=== PATIENT | female | born 1945 | race Caucasian/White ===

== ENCOUNTER 2017-12-06 11:36 | Emergency (ER) | payer MEDICARE, OTHER ==
[~2017-12-06] VITALS: Ht 147.3 cm; Wt 36.5 kg
[~2017-12-06 11:36] MED LIST: ALPR0.25 PO; GABA300 PO; LORT5TAB PO; LORTA5 PO
[2017-12-06 11:44] VITALS: BP 131/76; PULSE 89; RESP 16; TEMP 97.9; O2SAT 97
[2017-12-06] MEDS ORDERED: HYDR12.57 PO (12:01)
[2017-12-06] MEDS ORDERED: SPIR25TA PO (12:01)
[2017-12-06] MEDS ORDERED: HYDR-3583 PO (12:01)
[2017-12-06] MEDS ORDERED: GABA300C5 PO (12:01)
[2017-12-06] MEDS ORDERED: ALPR0.25 PO (12:02)
[2017-12-06] MEDS ORDERED: BUTA1TAB30 PO (12:02)
[2017-12-06] MEDS ORDERED: TETANUS/DIPHTHERIA TOXOID ADULT 0.5 ML VIAL IM ONE (12:15)
--- NOTE | 2017-12-06 12:20 | PD ---
HPI Chief Complaint: Fall Time Seen by Provider: 12:11 Travel History International Travel<30 days: No Contact w/Intl Traveler<30days: No Traveled to known affect area: No History of Present Illness HPI 72-year-old female who reports she lost her balance and fell from a seated position in her wheelchair when she attempted to bend forward pouring cat food into a bowl. She fell onto tile floor hitting her head. There was no loss of consciousness. She is not anticoagulated. She remembers the event. She denies any dizziness, chest pain, shortness of breath prior to the fall. She reports a mild generalized aching headache since the fall. No other injuries. She reports she has chronic pain "all over". She reports no increased pain anywhere. PFSH Past Medical History Arthritis: Yes Autoimmune Disease: Yes (FIBROMYALGIA) Blood Disorders: No Anxiety: Yes Cancer: No Cardiovascular Problems: Yes Chest Pain: Yes Cerebrovascular Accident: No Diabetes: No Diminished Hearing: No Endocrine: No Fibromyalgia: Yes Genitourinary: No Hiatal Hernia: Yes Hypertension: Yes Immune Disorder: Yes (FIBROMYLAGIA) Implanted Vascular Access Dvce: Yes Musculoskeletal: Yes (chronic back pain, osteopenia) Neurologic: Yes Psychiatric: No Reproductive: No Respiratory: No Immunizations Current: Yes Tetanus Vaccination: > 5 Years Influenza Vaccination: No ?: Not Menopausal: Yes Tubal Ligation: Yes Past Surgical History Abdominal Surgery: Yes Appendectomy: Yes Body Medical Devices: BREAST IMPLANTS Cardiac Surgery: No Cholecystectomy: Yes Ear Surgery: No Endocrine Surgery: No Eye Surgery: No Genitourinary Surgery: No Gynecologic Surgery: No Joint Replacement: Yes (RLE NAILING) Oral Surgery: No Thoracic Surgery: No Tonsillectomy: Yes Other Surgery: Yes (BREAST AUGMENTATION AND REMOVAL;) Social History Alcohol Use: No Tobacco Use: Yes (1 PPD) Substance Use: No Allergies-Medications (Allergen,Severity, Reaction): Coded Allergies: iodine (Unverified Allergy, Severe, Seizures, 12/06/17) iopamidol (Unverified Allergy, Severe, 12/06/17) potassium iodide (Unverified Allergy, Severe, Seizures, 12/06/17) povidone-iodine (Unverified Allergy, Severe, Seizures, 12/06/17) pregabalin (Unverified Allergy, Severe, CONFUSION, 12/06/17) propoxyphene (Unverified Allergy, Severe, VOMITING, 12/06/17) sodium iodide (Unverified Allergy, Severe, Seizures, 12/06/17) sodium iodide (Unverified Allergy, Severe, Seizures, 12/06/17) ibandronate sodium (Unverified Adverse Reaction, Severe, FRACTURES, ) Uncoded Allergies: GINSING (Adverse Reaction, Unknown, CONFUSION, 02/17/15) Reported Meds & Prescriptions Reported Meds & Active Scripts Active Reported Butalbital-Acetaminophen 50-325 Mg Tab 1-2 Tab PO DIRECTED PRN Do not exceed 6 tablets per day. Alprazolam 0.25 Mg Tab 0.25 Mg PO Q6H PRN Hydrocodone-Acetaminophen 10-325 mg Tab 1 Tab PO Q6H PRN Gabapentin 300 Mg Cap 300 Mg PO QID Spironolactone 25 Mg Tab 25 Mg PO DAILY Hydrochlorothiazide 12.5 Mg Cap 12.5 Mg PO DAILY Review of Systems Except as stated in HPI: all other systems reviewed are Neg General / Constitutional: No: Fever Eyes: No: Visual changes HENT: No: Headaches Cardiovascular: No: Chest Pain or Discomfort Respiratory: No: Shortness of Breath Gastrointestinal: No: Abdominal Pain Genitourinary: No: Dysuria Physical Exam Narrative GENERAL: Alert and well-appearing 72-year-old female SKIN: Laceration to the right forehead near the hairline. No active bleeding. HEAD: Normocephalic. No hematomas. EYES: Pupils equal, round, reactive to light. EOMs intact. No injection or drainage. ENT: No facial bone tenderness. No nasal bleeding or discharge. Mucous membranes pink and moist. NECK: Trachea midline. No cervical midline tenderness. No step-off deformity. CARDIOVASCULAR: Regular rate and rhythm. No chest wall tenderness. RESPIRATORY: No accessory muscle use. Clear to auscultation. Breath sounds equal bilaterally. GASTROINTESTINAL: Abdomen soft, non-tender, nondistended. MUSCULOSKELETAL: Extremities without clubbing, cyanosis, or edema. No obvious deformities. No bony tenderness. NEUROLOGICAL: Awake and alert. No obvious cranial nerve deficits. Motor grossly within normal limits. Five out of 5 muscle strength in the arms and legs. Normal speech. PSYCHIATRIC: Appropriate mood and affect; insight and judgment normal. Data Data Last Documented VS Vital Signs Date Time Temp Pulse Resp B/P (MAP) Pulse Ox O2 Delivery O2 Flow Rate FiO2 12/06/17 11:44 97.9 89 16 131/76 (94) [address] Brain W/O Iv Contrast(Rout) (12/06/17 ) Ct Cerv Spine W/O Contrast (12/06/17 ) Tetanus/Diphtheria Tox Adult (Tetanus/Di (12/06/17 12:15) MDM Medical Decision Making Medical Screen Exam Complete: Yes Emergency Medical Condition: Yes Differential Diagnosis Facial laceration, head injury, ICH, cervical fracture Narrative Course 72-year-old female here facial laceration and head injury after she lost her balance falling forward from her wheelchair. There was no loss of consciousness. She has normal neurologic exam. CT brain: Negative for intracranial hemorrhage CT cervical spine: No fracture Laceration repair performed. Patient tolerated procedure well. She has been observed in the emergency department for several hours. She is neurologically intact. She is stable and ready for discharge. Procedures Procedure Narrative LACERATION LOCATION: Right forehead LENGTH: 2-1/2 cm NUMBER OF STITCHES/ANA CRISTINA: 5 REPAIR: The area of the laceration was prepped with chlorhexidine and sterilely draped. The laceration was infiltrated with 1% lidocaine with epi. The wound was copiously irrigated and explored without evidence of foreign body, tendon injury or neurovascular injury. The wound was closed using 6-0 Ethilon. This was a single layer repair. A sterile dressing was applied. The patient was advised to keep the dressing clean and dry. Patient tolerated the procedure well. Diagnosis Primary Impression: Facial laceration Qualified Codes: S01.81XA - Laceration without foreign body of other part of head, initial encounter Additional Impression: Head injury Qualified Codes: S09.90XA - Unspecified injury of head, initial encounter Referrals: Primary Care Physician Additional Instructions: Sutures need to be removed in 7 days. Return to the emergency department if he develop severe headache, dizziness, visual changes Disposition: 01 DISCHARGE HOME Condition: Stable Aleksandra Frances December 06, 2017 12:20
--- NOTE | 2017-12-06 13:49 | RADRPT ---
EXAM DATE: 12/06/2017 1:41 PM EDT AGE/SEX: 72 years / Female INDICATIONS: Trauma. Fall. Right forehead laceration. CLINICAL DATA: This is the patient's initial encounter. Patient reports that signs and symptoms have been present for 1 day and indicates a pain score of 7/10. MEDICAL/SURGICAL HISTORY: Cardiovascular disease. Hypertension. Hiatal hernia. Appendectomy. Cho lecystectomy. Tubal ligation. Cervical surgery. RADIATION DOSE: 60.62 CTDI (mGy) COMPARISON: No prior [facility] exams available for comparison. TECHNIQUE: CT of the head without contrast. Using automated exposure control and adjustment of the mA and/or kV according to patient size, radiation dose was kept as low as reasonably achievable to ob tain optimal diagnostic quality images. FINDINGS: Cerebrum: Mild to moderate diffuse cerebral atrophy. The ventricles are normal for degree of atrophy . No evidence of midline shift, mass lesion, hemorrhage or acute infarction. No extraaxial fluid col lections are seen. Posterior Fossa: The cerebellum and brainstem are intact. The 4th ventricle is midline. The cerebe llopontine angle is unremarkable. Extracranial: The visualized portion of the orbits is intact. Skull: The calvaria is intact. No evidence of skull fracture. CONCLUSION: 1. Senescent changes without acute intracranial abnormality. Electronically signed by: Costa West MD 12/06/2017 1:48 PM EDT
--- NOTE | 2017-12-06 13:56 | RADRPT ---
EXAM DATE: 12/06/2017 1:45 PM EDT AGE/SEX: 72 years / Female INDICATIONS: Trauma. Fall. Right forehead laceration. CLINICAL DATA: This is the patient's initial encounter. Patient reports that signs and symptoms have been present for 1 day and indicates a pain score of 7/10. MEDICAL/SURGICAL HISTORY: Cardiovascular disease. Hypertension. Hiatal hernia. Appendectomy. Cholecystectomy. Tubal ligation. Cervical surgery. RADIATION DOSE: 25.25 CTDI (mGy) COMPARISON: POI, XR SPINE CERVICAL FLEX AND EXT ONLY, 03/14/2011. . TECHNIQUE: Contiguous axial images were obtained using helical multirow detector technique. The vol umetric data was post-processed with multiplanar reconstruction in oblique axial, sagittal, and coron al planes. Using automated exposure control and adjustment of the mA and/or kV according to patient s ize, radiation dose was kept as low as reasonably achievable to obtain optimal diagnostic quality melinda ges. FINDINGS: OSSEOUS STRUCTURES: Redemonstration of a C2 fixation screw. There is significant bony resorption of t he dens with no significant bridging callus. This appears to have progressed since remote [facility]. Vertebral body heights are otherwise maintained. Osseous structures are intact without eviden ce for acute bony fracture. Dens is intact. ALIGNMENT: 3 mm anterolisthesis of C4 on C5, stable from prior reports There is a normal C1-2 relatio nship. Facets are normally aligned. SOFT TISSUES: There is no significant prevertebral soft tissue hematoma. No significant cervical rocío nopathy or gross mass. The thyroid appears unremarkable. Visualized lung apices are clear without pn eumothorax. ADDITIONAL FINDINGS: Advanced multilevel degenerative spondylosis most prominently at C4-C7 with sign ificant disc space loss, vacuum disc phenomenon and disc osteophytes. Mild effacement of the anterio r thecal sac most prominently at C5-6 and C6-7. Mild bilateral bony neural foraminal narrowing at C5- 6 and C6-7. Multilevel facet arthropathy. CONCLUSION: 1. Prior C2 internal fixation with nonunion, as above. 2. Stable 3 mm anterolisthesis of C4 on C5, likely due to degenerative facet arthrosis. 3. No acute fracture. 4. Advanced degenerative spondylosis of the lower cervical spine most prominently at C4-7. Electronically signed by: Costa West MD 12/06/2017 1:54 PM EDT
--- NOTE | 2017-12-07 15:19 | EKG ---
Date Performed: 12/06/2017 Time Performed: 11:56:07 PTAGE: 72 years EKG: Sinus rhythm NORMAL ECG Compared to PREVIOUS TRACING , previously seen nonspecific ST changes have improved. PREVIOUS TRACING : 01/24/2011 13.49 DOCTOR: Jeff Arrieta Interpretating Date/Time 12/07/2017 15:18:23
== END 2017-12-06 14:40 | disposition home or self-care (01) ==
LOC: PHEFT 11:36
DX: S01.81XA Laceration without foreign body of other part of head, initial encounter (principal); W05.0XXA Fall from non-moving wheelchair, initial encounter; M79.7 Fibromyalgia; F41.9 Anxiety disorder, unspecified; I10 Essential (primary) hypertension; G89.29 Other chronic pain; M54.9 Dorsalgia, unspecified; F17.200 Nicotine dependence, unspecified, uncomplicated; Z23 Encounter for immunization
CPT/HCPCS: 12011; 70450; 72125; 90471; 90714; 93005